=== PATIENT | male | born 1995 | race Caucasian/White ===

== ENCOUNTER 2016-12-19 15:09 | Emergency (ER) | payer MEDICAID, OTHER ==
[~2016-12-19] VITALS: Ht 180.3 cm; Wt 86.4 kg
[2016-12-19 16:26] VITALS: BP 132/72
== END 2016-12-19 16:29 | disposition home or self-care (01) ==
LOC: EMS 15:10
DX: S51.811A Laceration without foreign body of right forearm, initial encounter (principal); Z88.0 Allergy status to penicillin; W45.8XXA Other foreign body or object entering through skin, initial encounter; Y93.89 Activity, other specified; Y92.89 Other specified places as the place of occurrence of the external cause; Y99.8 Other external cause status
CPT/HCPCS: 99282